=== PATIENT | female | born 1985 | race Caucasian/White ===

== ENCOUNTER 2023-12-10 00:03 | Day surgery (SDC) | payer OTHER, BC, SELFPAY ==
[2023-12-01 14:17] VITALS: BMI 19.8
--- NOTE | 2023-12-01 14:36 | PC.NURSE ---
Report to the Outpatient Waiting Room, entrance under the green pavilion located off [facility], at 0600 on 12-10-23. Planned Procedure Time: 0730.? Time changes happen often and if your time is changed the preop area will call you the afternoon before. - You and your visitor will be asked to self-screen and do not enter if you have any COVID symptoms. Please call surgeon if you need to reschedule. - A mask is optional within the hospital at this time. Patients may have clear liquids (water, carbonated beverages, clear teas, apple juice) until 3 hours prior to surgery with a maximum of 20 ounces. 0430 - No food from midnight until time of surgery and no smoking - Infants may have breast milk until 4 hours before surgery, formula 6 hours prior to surgery. - Children will be allowed to drink immediately following surgery.? If applicable, please bring a bottle or sippy cup to assist with drinking. Juice, water, soda, and popsicles are readily available.? For infants on formula, please bring formula the day of surgery.? Pacifiers are allowed. Take only the following medications with a SIP of water on the morning of surgery: None DO NOT STOP ANY OF YOUR OTHER PRESCRIPTION MEDICATIONS PRIOR TO SURGERY EXCEPT THE FOLLOWING Medications to discontinue per physician: vitamins and supplements; ibuprofen Date to take last dose: 12-07-23; Per Dr. Torres/ [facility] Please no make-up, nail kosovan, hairspray, perfume, deodorant, or body powder the day of surgery.? No jewelry (including any body piercings) or valuables the day of surgery, leave them at home.? Please take a shower or bath the night before, or the morning of, surgery with an antibacterial soap.? Wear comfortable, loose fitting clothing.? Children are encouraged to wear pajamas. Button down shirt/ zip-up jacket preferred - Jewelry must be removed prior to entering the operating room.? Rings and piercings that are not removed may be cut off. - The hospital will not accept responsibility for valuables.? - Please leave all valuables, including medications, at home the day of surgery. If you are going home after surgery, a licensed superintendent drivers must drive you home.? - NO public transportation without another adult if you receive anesthesia. - We recommend that an adult stay with you for 24 hours following discharge. - We also recommend that you do not drive, make important decision, drink alcoholic beverages, or take any drugs that were not prescribed by your health care provider for at least 24 hours after your discharge time. For Pediatric surgeries, we recommend two adults accompany the child home. Follow any additional instructions given to you from your surgeon. Telephone instructions given to Giorgi Gonzalez and asked if any additional questions and then verbalized understanding. Patient advised to call surgeon office or pre surgery nurse liaison [phone] if any additional questions.
[2023-12-10] VITALS (7 sets, daily range): BP systolic 105–126; BP diastolic 60–84; PULSE 63–83; RESP 14–16; TEMP 36.2–36.6; O2SAT 98–100
[2023-12-10] MEDS: KETOROLAC 15 MG/ML VIAL (*BKC) IV PUSH (06:36)
[2023-12-10] MEDS: ACETAMINOPHEN 500 MG TABLET 1000 MG PO (06:37)
[2023-12-10] MEDS: SCOPOLAMINE 1 MG PATCH 1 PATCH TRANSDERM (06:37)
--- NOTE | 2023-12-10 06:37 | WPDANESEPPF ---
Anes - Initial Pre Proc Eval Procedure: Operation Date: 12/10/23 07:30 Proposed Procedures p Bilateral Breast Augmentation - Rodrigo Monreal MD s Open Umbilical Hernia Repair with Mesh - Nilsa Torres MD Date/Time: 12/10/23 06:37 Surgeon: Rodrigo Monreal MD Pre Op Diagnosis: micromastia, Umb Hernia (2cm) Patient Data Age: 38 Gender: F Height: 1.78 m Weight: 62.6 kg Allergies Allergy/AdvReac Type Severity Reaction Status Date / Time cephalexin Allergy Intermediate Hives Verified 12/10/23 06:30 Home Medications Medication Instructions Recorded Confirmed Type multivitamin 1 tablet PO DAILY 10/07/23 12/10/23 History ibuprofen 200 mg tablet 400 mg PO Q6H PRN Pain, Moderate 12/01/23 12/10/23 History Patient hx anesthesia problems: none Family hx anesthesia problems: none Results Review: All pre-operative results and documents have been reviewed as part of the pre-operative evaluation. [facility] Surgical History Surgical History Hx of discectomy 2021 Family History Family History Mother Hypertension Social History Social History Smoking status: Never smoker Second hand tobacco smoke exposure: No Alcohol intake: current Alcohol use details: Sometimes socially Substance use: never Substance use type: does not use Do You Feel Safe in your Home?: Yes Lack of Transportation: No Lack of Food: Never True Current Housing: I Have Housing Concerned About Future Housing: No Difficulty Paying Gas/Electric Bills: No Difficulty Paying for Meds: No Currently Unemployed: No Education: Master's Degree or Higher Living arrangements: with family Occupation/Education: occupation 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 Informed Consent: The patient's anesthetic plan and its attendant risks and benefits were discussed with the patient/family/POA. Questions were solicited and answers provided to the satisfaction of the patient/family/POA.
[2023-12-10] MEDS: LACTATED RINGERS 1,000 ML 30 ML IV CONT ×2 (06:39→09:35)
[2023-12-10 06:40] LABS: BEDSIDEPREGUCG Negative (Negative)
--- NOTE | 2023-12-10 07:03 | WPDHPUPDATE1 ---
History and Physical Update Update Date/Time: 12/10/23 07:03 History and Physical has been reviewed, including an updated exam of the patient. There are NO changes in the patient's condition. Risks, benefits, and alternatives have been discussed and questions answered. Patient agrees to proceed with procedure.
--- NOTE | 2023-12-10 07:03 | W.PM.PROC2 ---
Procedure Note - Detailed Date of Procedure 12/10/23 Pre-op Diagnosis micromastia, Umb Hernia (2cm) Post-op Diagnosis Same Procedure Performed Bilateral Augmentation Mammaplasty Surgeon Rodrigo Monreal MD Anesthesia General Findings Bilateral Rashel Winslow SoftTouch 375cc Right REF# [id number] SN [id number] Dual plane 2 Left REF# [id number] SN [id number] Dual plane 1 Description of Procedure She is here today for bilateral breast augmentation. Previously and again today the risks, benefits, alternatives were discussed in extensive detail. I wanted her to be very realistic about the risks involved as well as expectations. We discussed aftercare and what to monitor for. Made sure answered all of her questions to her satisfaction today and consent was obtained. Marked in the preoperative holding area with their verification. The patient was taken to the operating room placed supine on the operating table. Anesthesia was provided by anesthesiology. A surgical time-out was taken. We cleansed the skin and 1% lidocaine and 0.25% Marcaine with epinephrine was used anesthetize as a field block. She was prepped and draped in a standard sterile fashion. Tegaderm nipple Winkler were placed. A 15 blade used to make an incision along the inframammary fold. Dissection was continued at 45 degree angle until the chest wall as identified. I incised the pectoralis major along its inferior border and completely released the inferior border leaving the medial border intact. I created a subpectoral pocket in the appropriate dimensions based on our preoperative planning for the implant. I then copiously irrigated with saline solution and verified a strict hemostasis. Next the use a triple antibiotic and Betadine containing solution to irrigate the pocket. I washed my gloves with the triple antibiotic and Betadine solution. We washed the implant immediately upon opening it with this solution and only opened it when we needed it. I used implant funnel and no-touch technique. The implant was introduced into the pocket using the funnel. Having verified positioning of the implant this was closed using 2-0 PDS followed by 3-0 Monocryl in a running subcuticular 4-0 Monocryl followed by tissue glue. Fluffs and surgical bra were placed. Dr. Torres now proceeded with his portion of the procedure (see his note for details). Patient was awoke and taken to PACU without difficulty. All instrument sponge counts were correct at the end of the case. Estimated Blood Loss 40 Drains No Packing No Pathology None sent Complications No immediate complications Condition Stable Disposition PACU
--- NOTE | 2023-12-10 08:06 | WPDHPUPDATE1 ---
History and Physical Update Update Date/Time: 12/10/23 08:06 History and Physical has been reviewed, including an updated exam of the patient. There are NO changes in the patient's condition. Risks, benefits, and alternatives have been discussed and questions answered. Patient agrees to proceed with procedure.
--- NOTE | 2023-12-10 08:07 | PM.IMHP ---
H&P: HPI History of Present Illness Date/Time: 12/10/23 08:07 Chief Complaint: umbilical hernia Narrative: Giorgi is a 38 y/o female who presents to the office at the request of Dr. Monreal for evaluation of a umbilical hernia. Patient states she first noticed this hernia following her first in 2012. She states the bulge is reducible. Reports tenderness and discomfort with physical activity or heavy lifting. She is scheduled to undergo breast augmentation with Dr. Monreal in November and would like to coordinate hernia repair. Review of Systems Review of Systems: All systems reviewed & are unremarkable except as noted in HPI and below PMFSH Surgical History Surgical History Hx of discectomy 2021 Family History Family History Mother Hypertension Social History Social History Smoking status: Never smoker Second hand tobacco smoke exposure: No Alcohol intake: current Alcohol use details: Sometimes socially Substance use: never Substance use type: does not use Do You Feel Safe in your Home?: Yes Lack of Transportation: No Lack of Food: Never True Current Housing: I Have Housing Concerned About Future Housing: No Difficulty Paying Gas/Electric Bills: No Difficulty Paying for Meds: No Currently Unemployed: No Education: Master's Degree or Higher Living arrangements: with family Occupation/Education: occupation 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 Gender identity (if verbalized by the patient): Female Spiritual care concerns: No Meds Home Medications and Allergies Home Medications Medication Instructions Recorded Confirmed Type multivitamin 1 tablet PO DAILY 10/07/23 12/10/23 History ibuprofen 200 mg tablet 400 mg PO Q6H PRN Pain, Moderate 12/01/23 12/10/23 History Allergies Allergy/AdvReac Type Severity Reaction Status Date / Time cephalexin Allergy Intermediate Hives Verified 12/10/23 06:30 Vital Signs Vital Signs - 24 hr 12/10/23 06:46 Temperature 36.2 C L Pulse Rate 72 Respiratory Rate 16 Blood Pressure 105/60 Pulse Oximetry 100 Oxygen Delivery Room Air Exam Const: General: cooperative, healthy appearing, comfortable and no acute distress Resp: Auscultation: clear to auscultation bilaterally Cardio: Rate: regular rate Rhythm: regular rhythm GI: Inspection: normal to inspection and non-distended GI Palp: Yes abdominal tenderness, Yes Soft to palpation, Yes Tenderness to palpation present (GI) and Yes Hernia present Other: umbilical hernia c 2 cm defect, reducible Assessment and Plan Assessment and plan (1) Umbilical hernia: Qualifiers: Obstruction and gangrene presence: without obstruction or gangrene Qualified Code(s): K42.9 - Umbilical hernia without obstruction or gangrene Code(s): K42.9 - Umbilical hernia without obstruction or gangrene Status: Acute Assessment and Plan: will setup for open repair, possible mesh
[2023-12-10] MEDS: LIDO 1%/EPINEPHRINE 1:100,000 50 ML VIAL 30 ML INFILTRATE (08:11)
[2023-12-10] MEDS: BUPivacaine HCL 0.25% PF 30 ML VIAL INFILTRATE (08:11)
[2023-12-10] MEDS: ceFAZolin 2 GM/D5W 50 ML 2 GM/50 ML BAG IVPB (08:11)
[2023-12-10] MEDS: NACL 0.9% IRRIG POUR BOTTLE 900 ML, GENTAMICIN SULFATE INJ 160 MG, CLINDAMYCIN PHOS INJ... IRRIGATION (08:11)
[2023-12-10] MEDS: TRANEXAMIC ACID 1,000MG/ISO100 1,000 MG/100 ML BAG 200 MG IVPB (08:20)
[2023-12-10] MEDS: BUPIVACAINE/EPINEPHRINE 0.5% 50 ML VIAL 10 ML INFILTRATE (09:24)
--- NOTE | 2023-12-10 09:33 | P.OP_ITS ---
Procedure Note - Detailed Date of Procedure 12/10/23 Pre-op Diagnosis umbilical hernia with defect measuring approximately 1.7 cm Post-op Diagnosis Same Procedure Performed open repair umbilical hernia with defect measuring 1.7 cm Surgeon Nilsa Torres MD Anesthesia General and Local Indications 38-year-old female presenting to the office with an umbilical hernia. The patient reports that is been there for many years and has become larger more symptomatic over time. Findings 1.7 cm umbilical hernia Description of Procedure The patient was taken to the operating room placed in the supine position. Af ter adequate induction of general anesthesia, the patient was prepped and draped in the normal sterile fashion. Please note that Dr. Herzog with Plastic surgery did a breast augmentation prior to the initiation of the umbilical hernia repair. Please see his full operative report for details of that procedure. Once the augmentation was completed, I was called in to the operating room to do the umbilical hernia repair. A time-out was then done to verify the patient's identity, as well as the procedure being performed. I began by localizing the area around the umbilicus. I then made a curvilinear incision in the infraumbilical fold. This was taken down to level fascia. I then was able to bluntly dissect around the umbilicus. I then carefully dissected the umbilicus off the underlying fascia. I then noted a small defect with incarcerated omentum. I was able to mobilize the incarcerated tissue and reduce it back into the abdominal cavity. This left an approximately 1.7 cm defect. I then closed this defect primarily with interrupted 0 Ethibond sutures. I then reapproximated the umbilicus to the fascia with a 3 0 Vicryl U- stitch. The subcutaneous tissue was then closed with 3 0 Vicryl suture. The skin was closed with 4 0 Monocryl subcuticular suture. Dermabond was then placed on the wound. The patient tolerated the procedure well was extubated in the operating room postop. She will be transferred to the recovery room in stable condition. Implants none Estimated Blood Loss 5 Drains No Packing No Pathology None sent Complications No immediate complications Condition Stable Disposition PACU [facility] Billing Surgery - Charge Forward: Surgery Billing
[2023-12-10] MEDS: fentaNYL CITRATE INJ (*CRX) 100 MCG/2 ML VIAL 25 MCG IV PUSH ×4 (09:50→10:05)
[2023-12-10] MEDS: oxyCODONE HCL (*CRX) 5 MG TAB IR PO (11:01)
== END 2023-12-10 11:28 | disposition home or self-care (01) ==
PROVIDERS: Surgery; PCP Family Medicine; Visit Provider Surgery Plastic and Reconstructive Surgery
PROC: (CPT 19325; principal; 2023-12-10 07:30)
PROC: (CPT 49591; 2023-12-10 07:30)
DX: Z41.1 Encounter for cosmetic surgery (principal); N64.82 Hypoplasia of breast; K42.9 Umbilical hernia without obstruction or gangrene
CPT/HCPCS: 19325; 49591; A9270; J0690; J1100; J1580; J1885; J2003; J2004; J2250; J2405; J2704; J3010; J7120